=== PATIENT | male | born 2000 | race Caucasian/White ===

== ENCOUNTER 2022-03-13 07:17 | Emergency (ER) | payer OTHER ==
[~2022-03-13] VITALS: Ht 182.9 cm; Wt 79.4 kg
[2022-03-13] MEDS ORDERED: ALBU90OI (07:37)
[2022-03-13] MEDS ORDERED: ALBU90OI INH (09:54)
[2022-03-13] MEDS ORDERED: PRED20 PO (09:54)
== END 2022-03-13 10:10 | disposition home or self-care (01) ==
LOC: ER 07:17
DX: J45.901 Unspecified asthma with (acute) exacerbation (principal); F17.290 Nicotine dependence, other tobacco product, uncomplicated
CPT/HCPCS: 94644; 94664; 99284-25; J7512

== ENCOUNTER 2022-07-02 04:26 | Emergency (ER) | payer OTHER ==
[~2022-07-02] VITALS: Ht 185.4 cm; Wt 74.8 kg
[~2022-07-02 04:26] MED LIST: ALBU90OI; ALBU90OI INH; PRED20 PO
[2022-07-02 04:38] VITALS: BP 140/68
[2022-07-02] MEDS ORDERED: CYCL10 PO (05:40)
== END 2022-07-02 06:14 | disposition home or self-care (01) ==
LOC: ER 04:26
DX: J45.901 Unspecified asthma with (acute) exacerbation (principal); F17.290 Nicotine dependence, other tobacco product, uncomplicated; Z79.52 Long term (current) use of systemic steroids; Z79.899 Other long term (current) drug therapy
CPT/HCPCS: 94644; 94664; A9270; J1100

== ENCOUNTER 2023-02-03 18:59 | Emergency (ER) | payer OTHER, MEDICAID ==
[~2023-02-03] VITALS: Ht 185.4 cm; Wt 74.8 kg
[~2023-02-03 18:59] MED LIST changes: +CYCL10 PO
[2023-02-03 20:30] VITALS: BP 126/60
== END 2023-02-03 20:36 | disposition home or self-care (01) ==
LOC: ER 18:59
DX: J45.901 Unspecified asthma with (acute) exacerbation (principal); Z79.899 Other long term (current) drug therapy; Z79.52 Long term (current) use of systemic steroids; F17.290 Nicotine dependence, other tobacco product, uncomplicated
CPT/HCPCS: 94644; 94664; 99284-25; A9270; J1100

== ENCOUNTER 2023-02-05 19:48 | Emergency (ER) | payer MEDICAID ==
[~2023-02-05] VITALS: Ht 185.4 cm; Wt 74.8 kg
[2023-02-05 20:08] VITALS: BP 133/89
[2023-02-05] MEDS ORDERED: Prednisone20 MG PO (21:43)
== END 2023-02-05 21:47 | disposition home or self-care (01) ==
LOC: ER 19:48
DX: J45.901 Unspecified asthma with (acute) exacerbation (principal); F17.290 Nicotine dependence, other tobacco product, uncomplicated; Z79.51 Long term (current) use of inhaled steroids; Z79.52 Long term (current) use of systemic steroids
CPT/HCPCS: 94640; 94664; 99284-25; J7512

== ENCOUNTER 2023-02-12 15:55 | Emergency (ER) | payer OTHER ==
[~2023-02-12] VITALS: Ht 182.9 cm; Wt 72.6 kg
[~2023-02-12 15:55] MED LIST changes: +Prednisone20 MG PO
[2023-02-12 16:31] VITALS: BP 113/86
[2023-02-12] MEDS ORDERED: ALBU90OI INH (16:37)
[2023-02-12] MEDS ORDERED: PRED20 PO (16:37)
== END 2023-02-12 16:48 | disposition home or self-care (01) ==
LOC: ER 15:55
DX: J45.901 Unspecified asthma with (acute) exacerbation (principal); F17.290 Nicotine dependence, other tobacco product, uncomplicated; Z79.899 Other long term (current) drug therapy
CPT/HCPCS: 99284; A9270

== ENCOUNTER 2023-03-05 01:11 | Emergency (ER) | payer OTHER ==
[~2023-03-05] VITALS: Ht 185.4 cm; Wt 74.8 kg
[2023-03-05 01:21] VITALS: BP 127/86
[2023-03-05] MEDS ORDERED: DELTASONE20 MG PO (01:36)
== END 2023-03-05 02:00 | disposition home or self-care (01) ==
LOC: ER 01:11
DX: J45.901 Unspecified asthma with (acute) exacerbation (principal); Z76.0 Encounter for issue of repeat prescription; F12.90 Cannabis use, unspecified, uncomplicated; F17.290 Nicotine dependence, other tobacco product, uncomplicated; Z79.52 Long term (current) use of systemic steroids; Z79.899 Other long term (current) drug therapy
CPT/HCPCS: 99284; A9270; J7512

== ENCOUNTER 2023-03-25 23:01 | Emergency (ER) | payer OTHER ==
[~2023-03-25] VITALS: Ht 185.4 cm; Wt 74.8 kg
[~2023-03-25 23:01] MED LIST changes: +DELTASONE20 MG PO
[2023-03-26] VITALS: BP 131/56
[2023-03-26] MEDS ORDERED: RX Prepack Albuterol 1 PREPACK/6.7 GM INH UD ONE (00:10)
[2023-03-26] MEDS ORDERED: Loratadine 10 MG Tab PO ONE (00:10)
[2023-03-26] MEDS ORDERED: SPIRIVA RESPIMAT4 G3 INH (00:14)
[2023-03-26] MEDS ORDERED: LORA10ER PO (00:15)
== END 2023-03-26 00:21 | disposition home or self-care (01) ==
LOC: ER 23:01
DX: J45.901 Unspecified asthma with (acute) exacerbation (principal); F12.90 Cannabis use, unspecified, uncomplicated; Z76.0 Encounter for issue of repeat prescription; F17.290 Nicotine dependence, other tobacco product, uncomplicated; Z79.899 Other long term (current) drug therapy
CPT/HCPCS: 99284; A9270

== ENCOUNTER 2023-03-30 17:29 | Emergency (ER) | payer OTHER ==
[~2023-03-30] VITALS: Ht 185.4 cm; Wt 74.8 kg
[~2023-03-30 17:29] MED LIST changes: +LORA10ER PO; +SPIRIVA RESPIMAT4 G3 INH
[2023-03-30 17:44] VITALS: BP 116/57
[2023-03-30] MEDS ORDERED: Dexamethasone Sod Phos 10 MG/ML 1ML VIAL PO ONE (17:50)
[2023-03-30] MEDS ORDERED: Albuterol 2.5 MG/3 ML VIAL INH SCH (17:50)
[2023-03-30] MEDS ORDERED: RX Prepack Albuterol 1 PREPACK/6.7 GM INH UD ONE (18:55)
[2023-03-30] MEDS ORDERED: Ipratropium/Albuterol SulF 2.5-0.5MG/3 ML Amp INH ONE (19:05)
== END 2023-03-30 19:33 | disposition home or self-care (01) ==
LOC: ER 17:29
DX: J45.901 Unspecified asthma with (acute) exacerbation (principal); Z79.51 Long term (current) use of inhaled steroids; Z79.899 Other long term (current) drug therapy
CPT/HCPCS: 94640; 94664; 99284-25; A9270; J1100

== ENCOUNTER 2024-12-16 02:00 | Emergency (ER) | payer OTHER ==
[~2024-12-16] VITALS: Ht 185.4 cm; Wt 74.8 kg
[~2024-12-16 02:00] MED LIST changes: +AZIT500 PO; +FLUT1DIS5 INH; +FLUTICASONE-SA1 EAC1 INH; +MONT10T PO; +Prednisone10 MG PO; +Ventolin5 MG/1 ML INH
[2024-12-16 03:40] VITALS: BP 122/82
[2024-12-16] MEDS ORDERED: RX Prepack Albuterol 1 PREPACK/6.7 GM INH UD ONE (04:40)
[2024-12-16] MEDS ORDERED: FLUT1DIS8 INH (04:40)
[2024-12-16] MEDS ORDERED: Ipratropium/Albuterol SulF 2.5-0.5MG/3 ML Amp INH ONE (04:40)
== END 2024-12-16 05:20 | disposition home or self-care (01) ==
LOC: ER 02:00
DX: J45.901 Unspecified asthma with (acute) exacerbation (principal); F17.290 Nicotine dependence, other tobacco product, uncomplicated; Z79.51 Long term (current) use of inhaled steroids; Z79.899 Other long term (current) drug therapy
CPT/HCPCS: 99284-25; A9270